=== PATIENT | male | born 2005 | race Caucasian/White ===

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

== ENCOUNTER 2025-02-22 12:10 | Emergency (ER) | payer OTHER ==
[~2025-02-22] VITALS: Ht 160 cm; Wt 58.3 kg
[2025-02-22] MEDS ORDERED: OMEP-173 PO (12:21)
[2025-02-22] MEDS ORDERED: SUCR1TAB56 PO (12:21)
[2025-02-22 12:59] LABS: BASO # 0.1 10^3/uL (0.0-0.2); BASO % 1.1 % (0.0-1.0); EOS # 0.1 10^3/uL (0.0-0.5); EOS % 1.7 % (0.0-3.0); LYMPH # 1.0 10^3/uL (1.5-5.0); LYMPH % 16.4 % (24.0-44.0); MONO # 0.7 10^3/uL (0.0-0.8); MONO % 10.5 % (2.0-8.0); NEUTROPHILS # 4.5 10^3/uL (1.5-8.5); NEUTROPHILS % 70.1 % (36.0-66.0); PLATELET COUNT, AUTOMATED 217 10^3/uL (150-450)
[2025-02-22 13:11] LABS: APPEARANCE, URINE CLEAR (CLEAR); BACTERIA, URINE AUTO NEGATIVE (NEGATIVE); BILIRUBIN, URINE AUTO NEGATIVE (NEGATIVE); BLOOD, URINE BLOOD NEGATIVE (NEGATIVE); GLUCOSE, URINE (UA) AUTO NEGATIVE (NEGATIVE); KETONE, URINE AUTO 1+ mg/dL (NEGATIVE); LEUKOCYTE ESTERASE, URINE AUTO NEGATIVE (NEGATIVE); MUCUS, URINE MODERATE (NEGATIVE); NITRITE, URINE AUTO NEGATIVE (NEGATIVE); PROTEIN, URINE AUTO 1+ mg/dL (NEGATIVE); RBC, URINE AUTO 0 /HPF (0-3); SPECIFIC GRAVITY URINE AUTO 1.028 (1.002-1.035); SQUAMOUS EPITHELIAL CELL UR AU 0 /HPF (0-6); UROBILINOGEN, URINE AUTO 2.0 mg/dL (0.0-2.0); WBC, URINE AUTO 1 /HPF (0-3)
[2025-02-22 13:18] LABS: ALT/SGPT 18 U/L (7.0-40); AST/SGOT 26 U/L (<34); CALCIUM LEVEL 9.4 MG/DL (8.5-10.1); CARBON DIOXIDE LEVEL 29 MMOL/L (20-31); CHLORIDE LEVEL 98 MMOL/L (98-107); CREATININE FOR GFR 0.84 MG/DL (0.70-1.30); GLOMERULAR FILTRATION RATE > 90.0 (>60); POTASSIUM SERUM 4.7 MMOL/L (3.5-5.1); SODIUM LEVEL 137 MMOL/L (136-145)
[2025-02-22] MEDS: NS (Normal Saline) 0.9% 1,000 ML IV ONE (13:49)
[2025-02-22] MEDS: ACETAMINOPHEN *IV* 1,000 MG in IV 1 EA IV ONE (13:50)
[2025-02-22] MEDS: GASTROGRAFIN SOLUTION 30ML PO SCH (13:51)
[2025-02-22] MEDS ORDERED: HOME MED LIST COMPLETE! XX SCH (14:30)
[2025-02-22] MEDS ORDERED: ISOVUE-370 76% 100 ML VIAL As Ordered ONE (15:38)
[2025-02-22 16:22] VITALS: BP 104/61; TEMP 98.5; O2SAT 98
[2025-02-22] MEDS ORDERED: ONDA-282 PO (16:41)
== END 2025-02-22 16:51 | disposition home or self-care (01) ==
LOC: M ED 12:10
DX: K80.20 Calculus of gallbladder without cholecystitis without obstruction (principal); G71.11 Myotonic muscular dystrophy; K76.89 Other specified diseases of liver; Z79.899 Other long term (current) drug therapy
CPT/HCPCS: 74177; 76705; 80048; 80076; 81001; 83690; 85025; 96365; 99284; J0134; Q9963; Q9967